=== PATIENT | female | born 1960 | race Caucasian/White ===

== ENCOUNTER 2017-08-28 10:56 | Outpatient (CLI) | payer OTHER ==
--- NOTE | 2017-08-28 14:25 | MMO ---
BILATERAL SCREENING MAMMOGRAM: INDICATION: Baseline examination; the patient had previous mammograms, none on location and greater than 10 years ago. These are unavailable for comparison. FINDINGS: The interpretation of this examination was assisted with computer-aided detection. There are scattere d fibroglandular elements. There are benign-appearing calcifications within the right and left breasts. No suspicious mass, cluster of microcalcifications, or area of architectural distortion is evident. IMPRESSION: BI-RADS category 2 - benign. Recommend routine annual mammographic screening. BIRADS 2: Benign Finding(s) Routine annual screening mammography (for women over age 40) POS: [facility]
== END 2017-08-28 10:57 | disposition home or self-care (01) ==
LOC: SCSMAMMO 10:56
PROVIDERS: ATTEND Family Medicine
DX: Z12.31 Encounter for screening mammogram for malignant neoplasm of breast (principal)
CPT/HCPCS: 77067

== ENCOUNTER 2021-07-18 06:03 | Inpatient (IN) | payer BC ==
[2021-07-18] MEDS ORDERED: Iopamidol 370 76% 100 ML VIAL ONE (08:51)
[2021-07-18 08:52] LABS: Troponin I 3.288 ng/mL (< 0.028)
[2021-07-18 08:57] VITALS: BMI 26.9
[2021-07-18] MEDS ORDERED: Nitroglycerin 0.4 MG TAB (25 Tab Bottle) SL PRN ×2 (09:07→16:19)
[2021-07-18] MEDS ORDERED: Nicotine 14 MG PATCH TD SCH (09:15)
[2021-07-18 11:38] LABS: Troponin I 4.788 ng/mL (< 0.028)
[2021-07-18] MEDS ORDERED: Communication Order-Pharmacy FS SCH ×2 (13:45→16:28)
[2021-07-18] MEDS ORDERED: Heparin 10,000 UNITS/ 10 ML VIAL ONE (13:57)
[2021-07-18] MEDS ORDERED: Verapamil 5 MG/2 ML VIAL ONE (13:57)
[2021-07-18] MEDS ORDERED: Nitroglycerin 100MG/250ML BOT 250 ML ONE (13:58)
[2021-07-18] MEDS ORDERED: Lidocaine 1% (PF) 30 ML VIAL ONE (13:58)
[2021-07-18 14:29] LABS: Troponin I 6.707 ng/mL (< 0.028)
[2021-07-18] MEDS ORDERED: Midazolam HCl 2 mg/2 ml Vial ONE (14:40)
[2021-07-18] MEDS ORDERED: Fentanyl 100 MCG/2 ML VIAL ONE (14:40)
[2021-07-18] MEDS ORDERED: Acetaminophen/Codeine 30-300mg Tablet PO PRN ×2 (16:19)
[2021-07-18] MEDS ORDERED: Sodium Chloride 0.9% 200 ML IV PRN (16:19)
[2021-07-18] MEDS ORDERED: Diazepam 5 MG TAB PO PRN (16:28)
[2021-07-18] MEDS ORDERED: Ondansetron PF 4 MG/2 ML Vial IVP PRN (17:22)
[2021-07-18 17:36] LABS: Hemoglobin A1c 8.3 % (4.0-6.0)
[2021-07-18] MEDS ORDERED: ceFAZolin (BATCH) 2 GM in Premix Bag 1 BAG IVPB SCH (18:30)
[2021-07-18] MEDS ORDERED: Atorvastatin Calcium 40 MG TAB PO SCH (21:00)
[2021-07-18] MEDS ORDERED: Enoxaparin Sodium 60 MG/0.6 ML SYRINGE SC SCH (21:00)
[2021-07-19 05:51] LABS: #Basophils 0.1 thou/uL (0.0-0.2); #Eosinphils 0.1 thou/uL (0.0-0.7); #Lymphocytes 2.3 thou/uL (1.20-3.40); #Monocytes 0.7 thou/uL (0.11-0.59); #Neutrophils 5.9 thou/uL (1.40-6.50); %Basophils 0.6 % (0.0-1.0); %Eosinophils 0.9 % (0.0-10.0); %Lymphocytes 25.4 % (21.0-51.0); %Monocytes 8.1 % (0.0-10.0); %Neutrophils 65.1 % (42.0-75.0); Hemoglobin 12.9 g/dL (12.0-16.0); Mean Corpuscular HGB CONC 34.3 g/dL (32.0-36.0); Mean Corpuscular Hemoglobin 30.9 pg (27.0-31.0); Mean Corpuscular Volume 90.1 fL (78.0-98.0); Mean Platelet Volume 7.4 fL (7.4-10.4); Platelet Count 174 thou/uL (130-400); RBC Distribution Width 11.6 % (11.5-14.5); Red Blood Cell (RBC) Count 4.17 mill/uL (4.20-5.40)
[2021-07-19] MEDS ORDERED: Albumin 5% 500 ML ONE (06:27)
[2021-07-19] MEDS ORDERED: Bupivacaine PF 0.5% 30 ML VIAL ONE (06:27)
[2021-07-19] MEDS ORDERED: Dexamethasone 4 mg/ml Vial ONE (06:27)
[2021-07-19] MEDS ORDERED: EPINEPHrine 1 MG/ML AMP ONE (06:27)
[2021-07-19] MEDS ORDERED: HumaLOG 300 UNITS/3 ML VIAL SC PRN ×2 (06:42)
[2021-07-19] MEDS ORDERED: Dextrose 5% in Water 1,000 ML IV PRN ×2 (06:42→12:00)
[2021-07-19] MEDS ORDERED: Dextrose 50% Abboject 50 ML SYRINGE SLOW IVP PRN ×2 (06:42→12:00)
[2021-07-19 06:45] LABS: Anion Gap 13 mmol/L (10-20); BUN (Urea Nitrogen) 13 mg/dL (9.8-20.1); Calc. Creatinine Clearance 66 mL/min (70-130); Calcium 9.2 mg/dL (7.8-10.44); Carbon Dioxide 21 mmol/L (22-29); Chloride 108 mmol/L (98-107); Glucose 120 mg/dL (70-105); Potassium 4.6 mmol/L (3.5-5.1); Sodium 137 mmol/L (136-145)
[2021-07-19] MEDS ORDERED: Heparin 10,000 UNITS/1 ML VIAL 30,000 UNITS in Sodium Chloride 0.9% 1,000 ML IVPB SCH (06:45)
[2021-07-19] MEDS ORDERED: fentaNYL Citrate/PF 100 MCG/2 ML SYRINGE ONE ×2 (06:58→06:59)
[2021-07-19] MEDS ORDERED: Midazolam HCl 5 mg/5 ml Vial ONE (06:58)
[2021-07-19] MEDS ORDERED: Sodium Chloride 0.9% 100 ML ONE (07:21)
[2021-07-19] MEDS ORDERED: CEFAZOLIN 2 GM VIAL ONE (07:21)
[2021-07-19] MEDS ORDERED: Papaverine 60 MG/2 ML VIAL ONE (07:40)
[2021-07-19] MEDS ORDERED: Sodium Bicarb 50 MEQ/50 ML Abboject 8.4% SYRINGE ONE (07:40)
[2021-07-19] MEDS ORDERED: Thrombin 5000 UNITS/5 ML VIAL ONE (07:40)
[2021-07-19] MEDS ORDERED: Lidocaine 1% PF 5 ML VIAL ONE (07:40)
[2021-07-19] MEDS ORDERED: Magnesium Sulfate 1 GM/2 ML VIAL ONE (07:40)
[2021-07-19] MEDS ORDERED: Lidocaine 2% PF 100 mg/5 ml Syringe ONE (07:40)
[2021-07-19] MEDS ORDERED: Calcium Chloride 1 GM/10 ML Abboject SYRINGE ONE (07:40)
[2021-07-19] MEDS ORDERED: Cardioplegic Soln 1,000 ML BAG ONE (07:40)
[2021-07-19] MEDS ORDERED: Protamine Sulfate 250 MG/25 ML VIAL ONE (07:40)
[2021-07-19] MEDS ORDERED: Heparin 5,000 UNITS/ML VIAL ONE (07:40)
[2021-07-19] MEDS ORDERED: Vecuronium 10 MG VIAL ONE (07:40)
[2021-07-19] MEDS ORDERED: Heparin 30,000 units/30 ml VIAL ONE (07:40)
[2021-07-19] MEDS ORDERED: PROPOFOL 200 MG/20 ML VIAL ONE (07:40)
[2021-07-19] MEDS ORDERED: Labetalol HCl 100 MG/20 ML VIAL ONE (07:40)
[2021-07-19] MEDS ORDERED: Aminocaproic Acid 5 GM/20 ML VIAL ONE (07:40)
[2021-07-19] MEDS ORDERED: Mannitol 12.5 GM/50 ML ONE (07:40)
[2021-07-19] MEDS ORDERED: Aspirin Chewable 81 MG TAB PO SCH (09:00)
[2021-07-19] MEDS ORDERED: PHENYLEPHRINE-NS 100 MCG/ML 10 ML SYRINGE ONE (09:15)
[2021-07-19] MEDS: Dextrose 5 %-0.45 % NaCl 1,000 ML IV SCH (10:54)
[2021-07-19 11:02] LABS: Actual Bicarbonate (HCO3a) 20.7 mEq/L (22-28); Base Excess (BEa) -4.7 mEq/L (-2.0 to +3.0); CO2 Tension 39.5 mmHg (35.0-45.0); Calcium, Ionized (arterial) 1.16 mmol/L (1.12-1.30); Carboxyhemoglobin (COHb) 0.4 gm% (0.0-3.0); Hemoglobin (Hb) 11.7 g/dL (12.0-16.0); O2 Tension (PaO2), arterial 93.9 mmHg (80.0-100.0); Potassium - ABG Lab 5.14 mmol/L (3.70-5.30); pH, Arterial 7.34 (7.35-7.45)
[2021-07-19 11:04] LABS: Puncture Site Arterial Line
[2021-07-19 11:05] LABS: ALV-art Gradient 284.525 mmHg (0-20)
[2021-07-19] MEDS ORDERED: Morphine 4 MG/ML VIAL ONE (11:09)
[2021-07-19] MEDS ORDERED: Nitroglycerin 50 MG/250 ML BOT 250 ML ONE (11:30)
[2021-07-19] MEDS ORDERED: Nitroglycerin 0.4 MG TAB (25 Tab Bottle) ONE (11:30)
[2021-07-19] MEDS ORDERED: niCARdipine 25 MG in Sodium Chloride 0.9% 250 ML 250 ML IVPB PRN (11:41)
[2021-07-19] MEDS ORDERED: Norepinephrine 8 MG/0.9% NS 250 ML IVPB PRN (11:41)
[2021-07-19] MEDS ORDERED: Morphine 2 MG/ML VIAL SLOW IVP PRN (11:41)
[2021-07-19] MEDS ORDERED: Bisacodyl 5 MG TAB PO PRN (11:41)
[2021-07-19] MEDS ORDERED: Hetastarch 6% 500 ML 500 ML IVPB PRN (11:41)
[2021-07-19] MEDS ORDERED: hydrALAZINE 20 MG/ML VIAL SLOW IVP PRN (11:41)
[2021-07-19] MEDS ORDERED: traMADol HCl 50 MG TAB PO PRN (11:41)
[2021-07-19] MEDS ORDERED: Nitroglycerin 50 MG/250 ML BOT 250 ML IVPB PRN (11:41)
[2021-07-19] MEDS ORDERED: Fentanyl 100 MCG/2 ML VIAL SLOW IVP PRN (11:41)
[2021-07-19] MEDS ORDERED: Bisacodyl 10 MG SUPP PR PRN (11:41)
[2021-07-19] MEDS ORDERED: Potassium Chloride 20 MEQ/100 ML PREMIX BAG IVPB PRN (11:41)
[2021-07-19] MEDS ORDERED: Guaifenesin DM 100-10/5 ML UDCUP PO PRN (11:41)
[2021-07-19] MEDS ORDERED: D5 1/2 NS w/20 mEq KCL 1,000 ML IV SCH (11:45)
[2021-07-19] MEDS ORDERED: Insulin Glargine 30 UNITS/0.3 ML VIAL SC PRN (11:49)
[2021-07-19 12:00] LABS: Anion Gap 14 mmol/L (10-20); BUN (Urea Nitrogen) 12 mg/dL (9.8-20.1); Calc. Creatinine Clearance 65 mL/min (70-130); Calcium 8.3 mg/dL (7.8-10.44); Carbon Dioxide 18 mmol/L (22-29); Chloride 111 mmol/L (98-107); Glucose 224 mg/dL (70-105); Potassium 5.2 mmol/L (3.5-5.1); Sodium 138 mmol/L (136-145)
[2021-07-19] MEDS ORDERED: HUMULIN R 100 UNITS in Sodium Chloride 0.9% 100 ML IVPB SCH (12:00)
[2021-07-19] MEDS ORDERED: Insulin Regular 300 UNITS/3 ML VIAL SC PRN (12:00)
[2021-07-19 12:02] LABS: Hemoglobin 11.2 g/dL (12.0-16.0); Mean Corpuscular HGB CONC 34.2 g/dL (32.0-36.0); Mean Corpuscular Hemoglobin 31.4 pg (27.0-31.0); Mean Corpuscular Volume 91.7 fL (78.0-98.0); Mean Platelet Volume 7.9 fL (7.4-10.4); Platelet Count 133 thou/uL (130-400); RBC Distribution Width 11.6 % (11.5-14.5); Red Blood Cell (RBC) Count 3.58 mill/uL (4.20-5.40)
[2021-07-19 12:07] LABS: INR-International Normal Ratio 1.1; PTT 29.7 sec (22.9-36.1); Prothrombin Time 14.6 sec (12.0-14.7)
[2021-07-19] MEDS ORDERED: Magnesium 2 GM/50 ML(in water) 2 GM in Premix Bag 1 BAG IVPB SCH (12:15)
[2021-07-19 12:16] LABS: Band 10 % (5-11); Lymphocytes 22 % (21-51); MDiff Complete? YES; Metamyelocyte 1 % (0-0); Monocytes 6 % (0-10); Neutrophil 61 % (42-75); Platelet Morphology Comment Appears Adequate; RBC Morphology Normal
[2021-07-19 12:48] LABS: Actual Bicarbonate (HCO3a) 19.4 mEq/L (22-28); Base Excess (BEa) -7.8 mEq/L (-2.0 to +3.0); CO2 Tension 46.5 mmHg (35.0-45.0); Calcium, Ionized (arterial) 1.16 mmol/L (1.12-1.30); Carboxyhemoglobin (COHb) 0.4 gm% (0.0-3.0); Hemoglobin (Hb) 12.3 g/dL (12.0-16.0); Potassium - ABG Lab 4.55 mmol/L (3.70-5.30)
[2021-07-19] MEDS: Ketorolac Tromethamine 30 MG/ML VIAL IVP SCH ×4 (13:10→23:37)
[2021-07-19 13:12] LABS: ALV-art Gradient 153.075 mmHg (0-20); Puncture Site Arterial Line; pH, Arterial 7.24 (7.35-7.45)
[2021-07-19 14:14] LABS: Actual Bicarbonate (HCO3a) 17.9 mEq/L (22-28); Base Excess (BEa) -8.2 mEq/L (-2.0 to +3.0); CO2 Tension 39.2 mmHg (35.0-45.0); Calcium, Ionized (arterial) 1.16 mmol/L (1.12-1.30); Carboxyhemoglobin (COHb) 0.5 gm% (0.0-3.0); Hemoglobin (Hb) 12.1 g/dL (12.0-16.0); Potassium - ABG Lab 4.39 mmol/L (3.70-5.30); pH, Arterial 7.28 (7.35-7.45)
[2021-07-19 14:17] LABS: Puncture Site Arterial Line
[2021-07-19] MEDS ORDERED: Sodium Bicarb 50 MEQ/50 ML VIAL ONE (14:17)
[2021-07-19] MEDS ORDERED: Sodium Bicarb 50 MEQ/50 ML VIAL IVP SCH (15:15)
[2021-07-19] MEDS ORDERED: ceFAZolin 2 GM/Dextrose 50 ML 2 GM in Premix Bag 1 BAG IVPB SCH (16:00)
[2021-07-19] MEDS: CEFAZOLIN 2 GM in Sodium Chloride 0.9% 100 ML IVPB SCH (16:28)
[2021-07-19] MEDS: Ondansetron PF 4 MG/2 ML Vial IVP PRN ×2 (17:10→23:37)
[2021-07-19 17:39] LABS: Hemoglobin 10.7 g/dL (12.0-16.0)
[2021-07-19 17:54] LABS: Potassium 3.8 mmol/L (3.5-5.1)
[2021-07-19] MEDS: Fentanyl 100 MCG/2 ML VIAL SLOW IVP PRN ×2 (19:31→21:54)
[2021-07-19] MEDS ORDERED: Atorvastatin Calcium 40 MG TAB PO SCH (21:00)
[2021-07-19] MEDS: Famotidine 40 MG/4 ML VIAL SLOW IVP SCH (21:19)
[2021-07-20] MEDS: CEFAZOLIN 2 GM in Sodium Chloride 0.9% 100 ML IVPB SCH ×2 (00:29→08:09)
[2021-07-20] MEDS: Dextrose 5 %-0.45 % NaCl 1,000 ML IV SCH (03:21)
[2021-07-20 04:19] LABS: #Lymphocytes 1.3 thou/uL (1.20-3.40); #Monocytes 1.3 thou/uL (0.11-0.59); #Neutrophils 11.3 thou/uL (1.40-6.50); %Basophils 0.1 % (0.0-1.0); %Eosinophils 0.1 % (0.0-10.0); %Lymphocytes 9.6 % (21.0-51.0); %Monocytes 9.4 % (0.0-10.0); %Neutrophils 80.9 % (42.0-75.0); Hemoglobin 9.7 g/dL (12.0-16.0); Mean Corpuscular HGB CONC 34.4 g/dL (32.0-36.0); Mean Corpuscular Hemoglobin 31.8 pg (27.0-31.0); Mean Corpuscular Volume 92.4 fL (78.0-98.0); Mean Platelet Volume 7.7 fL (7.4-10.4); Platelet Count 131 thou/uL (130-400); RBC Distribution Width 11.6 % (11.5-14.5); Red Blood Cell (RBC) Count 3.04 mill/uL (4.20-5.40)
[2021-07-20 04:38] LABS: Anion Gap 11 mmol/L (10-20); BUN (Urea Nitrogen) 17 mg/dL (9.8-20.1); Calc. Creatinine Clearance 62 mL/min (70-130); Calcium 8.4 mg/dL (7.8-10.44); Carbon Dioxide 22 mmol/L (22-29); Chloride 112 mmol/L (98-107); Glucose 131 mg/dL (70-105); Potassium 4.2 mmol/L (3.5-5.1); Sodium 141 mmol/L (136-145)
[2021-07-20] MEDS: Ondansetron PF 4 MG/2 ML Vial IVP PRN ×4 (06:21→23:30)
[2021-07-20] MEDS: Fentanyl 100 MCG/2 ML VIAL SLOW IVP PRN ×2 (06:21→09:55)
[2021-07-20] MEDS: Ketorolac Tromethamine 30 MG/ML VIAL IVP SCH ×4 (06:23→23:22)
[2021-07-20] MEDS: Aspirin 325 MG TAB PO SCH (08:08)
[2021-07-20] MEDS ORDERED: Simethicone Chewable 80 MG TAB PO PRN (08:25)
[2021-07-20] MEDS ORDERED: Magnesium 2 GM/50 ML(in water) 2 GM in Premix Bag 1 BAG IVPB SCH (09:00)
[2021-07-20] MEDS: Famotidine 40 MG/4 ML VIAL SLOW IVP SCH (10:44)
[2021-07-20] MEDS ORDERED: Nitroglycerin 0.4 MG TAB (25 Tab Bottle) SL PRN (12:06)
[2021-07-20] MEDS ORDERED: Mineral Oil ENEMA PR PRN (12:06)
[2021-07-20] MEDS: Mag-Al 1200 mg/1200 mg/30 ML UDCUP PO PRN ×2 (12:23→16:26)
[2021-07-20] MEDS ORDERED: Dextrose 50% Abboject 50 ML SYRINGE SLOW IVP PRN (12:30)
[2021-07-20] MEDS ORDERED: Dextrose 5% in Water 1,000 ML IV PRN (12:30)
[2021-07-20] MEDS: glipiZIDE 5 MG TAB PO SCH (16:26)
[2021-07-20] MEDS: Acetaminophen 325 MG TAB PO PRN (16:26)
[2021-07-20] MEDS: Atorvastatin Calcium 10 MG TAB PO SCH (21:33)
[2021-07-20] MEDS: Famotidine 20 MG TAB PO SCH (21:33)
[2021-07-20] MEDS: Metoprolol Tartrate 25 MG TAB PO SCH (21:33)
[2021-07-20] MEDS: Insulin Regular 300 UNITS/3 ML VIAL SC PRN (21:34)
[2021-07-21 04:43] LABS: #Lymphocytes 2.1 thou/uL (1.20-3.40); #Monocytes 1.1 thou/uL (0.11-0.59); %Eosinophils 0.2 % (0.0-10.0); %Lymphocytes 15.7 % (21.0-51.0); %Monocytes 8.5 % (0.0-10.0); %Neutrophils 75.6 % (42.0-75.0); Hemoglobin 9.5 g/dL (12.0-16.0); Mean Corpuscular HGB CONC 33.5 g/dL (32.0-36.0); Mean Corpuscular Hemoglobin 31.6 pg (27.0-31.0); Mean Corpuscular Volume 94.2 fL (78.0-98.0); Mean Platelet Volume 7.6 fL (7.4-10.4); Platelet Count 132 thou/uL (130-400); RBC Distribution Width 11.8 % (11.5-14.5); White Blood Cell (WBC) Count 13.3 thou/uL (4.8-10.8)
[2021-07-21 05:05] LABS: Anion Gap 11 mmol/L (10-20); BUN (Urea Nitrogen) 22 mg/dL (9.8-20.1); Calc. Creatinine Clearance 56 mL/min (70-130); Calcium 8.6 mg/dL (7.8-10.44); Carbon Dioxide 25 mmol/L (22-29); Chloride 108 mmol/L (98-107); Glucose 153 mg/dL (70-105); Sodium 139 mmol/L (136-145)
[2021-07-21] MEDS: Ketorolac Tromethamine 30 MG/ML VIAL IVP SCH ×4 (05:20→23:39)
[2021-07-21] MEDS: Insulin Regular 300 UNITS/3 ML VIAL SC PRN ×4 (05:25→20:48)
[2021-07-21] MEDS: traMADol HCl 50 MG TAB PO PRN (07:54)
[2021-07-21] MEDS: Aspirin 325 MG TAB PO SCH (07:56)
[2021-07-21] MEDS: Famotidine 20 MG TAB PO SCH ×2 (07:56→20:47)
[2021-07-21] MEDS: glipiZIDE 5 MG TAB PO SCH ×2 (07:56→17:05)
[2021-07-21] MEDS: Metoprolol Tartrate 25 MG TAB PO SCH ×2 (07:56→20:47)
[2021-07-21] MEDS: Furosemide 20 MG TAB PO SCH (07:56)
[2021-07-21] MEDS ORDERED: Amiodarone 150 MG, Admixture Fee 1 EACH in Dextrose 5% in Water 100 ML IVPB SCH (11:45)
[2021-07-21] MEDS: Amiodarone 450 MG, Admixture Fee 1 EACH in Dextrose 5% in Water 250 ML IVPB SCH ×2 (12:28→23:40)
[2021-07-21] MEDS ORDERED: Digoxin 0.5 MG/2 ML AMP SLOW IVP SCH (12:30)
[2021-07-21] MEDS ORDERED: Diltiazem 125 MG in Sodium Chloride 0.9% 100 ML IVPB SCH (12:30)
[2021-07-21] MEDS ORDERED: Diltiazem HCl 125 MG in Premix Bag 1 BAG IVPB SCH (12:45)
[2021-07-21 13:07] LABS: ALT (SGPT) Less than 7 U/L (8-55); AST (SGOT) 18 U/L (5-34); Albumin 3.6 g/dL (3.5-5.0); Alkaline Phosphatase 77 U/L (40-110); Bilirubin, Direct 0.4 mg/dL (0.1-0.3); Bilirubin, Total 0.8 mg/dL (0.2-1.2); Magnesium 2.2 mg/dL (1.6-2.6); Protein, Total 6.1 g/dL (6.0-8.3)
[2021-07-21] MEDS: Atorvastatin Calcium 10 MG TAB PO SCH (20:47)
[2021-07-22] MEDS: Ketorolac Tromethamine 30 MG/ML VIAL IVP SCH ×2 (05:28→12:08)
[2021-07-22 08:01] LABS: #Eosinphils 0.1 thou/uL (0.0-0.7); #Lymphocytes 1.8 thou/uL (1.20-3.40); #Monocytes 0.8 thou/uL (0.11-0.59); #Neutrophils 5.6 thou/uL (1.40-6.50); %Basophils 0.2 % (0.0-1.0); %Eosinophils 0.8 % (0.0-10.0); %Lymphocytes 21.8 % (21.0-51.0); %Monocytes 9.8 % (0.0-10.0); %Neutrophils 67.4 % (42.0-75.0); Mean Corpuscular Hemoglobin 31.1 pg (27.0-31.0); Mean Corpuscular Volume 94.1 fL (78.0-98.0); Mean Platelet Volume 7.9 fL (7.4-10.4); Platelet Count 137 thou/uL (130-400); RBC Distribution Width 11.7 % (11.5-14.5); Red Blood Cell (RBC) Count 2.91 mill/uL (4.20-5.40); White Blood Cell (WBC) Count 8.3 thou/uL (4.8-10.8)
[2021-07-22 08:16] LABS: Anion Gap 12 mmol/L (10-20); BUN (Urea Nitrogen) 21 mg/dL (9.8-20.1); Calc. Creatinine Clearance 59 mL/min (70-130); Calcium 8.4 mg/dL (7.8-10.44); Carbon Dioxide 25 mmol/L (22-29); Chloride 107 mmol/L (98-107); Glucose 132 mg/dL (70-105); Potassium 4.4 mmol/L (3.5-5.1); Sodium 140 mmol/L (136-145)
[2021-07-22] MEDS: Famotidine 20 MG TAB PO SCH ×2 (09:12→20:49)
[2021-07-22] MEDS: glipiZIDE 5 MG TAB PO SCH ×2 (09:12→15:34)
[2021-07-22] MEDS: Aspirin 325 MG TAB PO SCH (09:12)
[2021-07-22] MEDS: Metoprolol Tartrate 25 MG TAB PO SCH ×2 (09:12→20:48)
[2021-07-22] MEDS: Furosemide 20 MG TAB PO SCH (09:12)
[2021-07-22 09:50] LABS: Magnesium 2.5 mg/dL (1.6-2.6)
[2021-07-22] MEDS: Insulin Regular 300 UNITS/3 ML VIAL SC PRN ×3 (12:08→21:56)
[2021-07-22] MEDS: Amiodarone 200 MG TAB PO SCH ×2 (15:34→20:48)
[2021-07-22] MEDS ORDERED: diphenhydrAMINE 50 MG/ML VIAL IVP SCH (17:30)
[2021-07-22] MEDS: Atorvastatin Calcium 10 MG TAB PO SCH (20:48)
[2021-07-22] MEDS ORDERED: Amiodarone 150 MG, Admixture Fee 1 EACH in Dextrose 5% in Water 100 ML IVPB SCH (22:00)
[2021-07-22 22:17] LABS: Troponin I 3.208 ng/mL (< 0.028)
[2021-07-22 22:20] LABS: Magnesium 2.1 mg/dL (1.6-2.6); Phosphorus 2.3 mg/dL (2.3-4.7)
[2021-07-22] MEDS: Amiodarone 450 MG, Admixture Fee 1 EACH in Dextrose 5% in Water 250 ML IVPB SCH (23:06)
[2021-07-22] MEDS: Acetaminophen 325 MG TAB PO PRN (23:08)
[2021-07-23] MEDS ORDERED: Digoxin 0.5 MG/2 ML AMP SLOW IVP SCH (00:30)
[2021-07-23] MEDS: traMADol HCl 50 MG TAB PO PRN ×2 (01:15→20:34)
[2021-07-23 04:32] LABS: #Eosinphils 0.1 thou/uL (0.0-0.7); #Monocytes 0.8 thou/uL (0.11-0.59); %Eosinophils 0.9 % (0.0-10.0); %Lymphocytes 25.6 % (21.0-51.0); %Monocytes 10.4 % (0.0-10.0); %Neutrophils 63.2 % (42.0-75.0); Hemoglobin 9.3 g/dL (12.0-16.0); Mean Corpuscular HGB CONC 33.9 g/dL (32.0-36.0); Mean Corpuscular Hemoglobin 31.6 pg (27.0-31.0); Mean Corpuscular Volume 93.2 fL (78.0-98.0); Mean Platelet Volume 7.5 fL (7.4-10.4); Platelet Count 170 thou/uL (130-400); RBC Distribution Width 11.7 % (11.5-14.5); Red Blood Cell (RBC) Count 2.93 mill/uL (4.20-5.40); White Blood Cell (WBC) Count 7.9 thou/uL (4.8-10.8)
[2021-07-23 04:51] LABS: Anion Gap 13 mmol/L (10-20); BUN (Urea Nitrogen) 20 mg/dL (9.8-20.1); Calc. Creatinine Clearance 57 mL/min (70-130); Calcium 8.7 mg/dL (7.8-10.44); Carbon Dioxide 24 mmol/L (22-29); Chloride 107 mmol/L (98-107); Glucose 159 mg/dL (70-105); Potassium 3.8 mmol/L (3.5-5.1); Sodium 140 mmol/L (136-145)
[2021-07-23] MEDS: Metoprolol Tartrate 25 MG TAB PO SCH ×2 (08:21→20:34)
[2021-07-23] MEDS: Furosemide 20 MG TAB PO SCH (08:21)
[2021-07-23] MEDS: glipiZIDE 5 MG TAB PO SCH ×2 (08:21→17:32)
[2021-07-23] MEDS: Famotidine 20 MG TAB PO SCH ×2 (08:21→20:34)
[2021-07-23] MEDS: Amiodarone 200 MG TAB PO SCH ×3 (08:21→20:34)
[2021-07-23] MEDS: Ondansetron PF 4 MG/2 ML Vial IVP PRN ×2 (08:21→19:18)
[2021-07-23] MEDS: Polyethylene Glycol 3350 17 GM Packet PO SCH (08:21)
[2021-07-23] MEDS: Aspirin 325 MG TAB PO SCH (08:21)
[2021-07-23] MEDS ORDERED: Magnesium Citrate 300 ML BOT PO SCH (17:15)
[2021-07-23] MEDS: Atorvastatin Calcium 10 MG TAB PO SCH (20:34)
[2021-07-23] MEDS: Amiodarone 450 MG, Admixture Fee 1 EACH in Dextrose 5% in Water 250 ML IVPB SCH (21:14)
[2021-07-24] MEDS: Ondansetron PF 4 MG/2 ML Vial IVP PRN (03:54)
[2021-07-24 04:19] LABS: #Eosinphils 0.1 thou/uL (0.0-0.7); #Lymphocytes 2.2 thou/uL (1.20-3.40); #Monocytes 1.1 thou/uL (0.11-0.59); #Neutrophils 6.3 thou/uL (1.40-6.50); %Basophils 0.3 % (0.0-1.0); %Eosinophils 0.7 % (0.0-10.0); %Lymphocytes 22.5 % (21.0-51.0); %Monocytes 11.3 % (0.0-10.0); %Neutrophils 65.3 % (42.0-75.0); Mean Corpuscular HGB CONC 33.1 g/dL (32.0-36.0); Mean Corpuscular Volume 93.5 fL (78.0-98.0); Mean Platelet Volume 7.2 fL (7.4-10.4); Platelet Count 229 thou/uL (130-400); RBC Distribution Width 11.8 % (11.5-14.5); Red Blood Cell (RBC) Count 3.22 mill/uL (4.20-5.40); White Blood Cell (WBC) Count 9.6 thou/uL (4.8-10.8)
[2021-07-24 04:57] LABS: Anion Gap 12 mmol/L (10-20); BUN (Urea Nitrogen) 16 mg/dL (9.8-20.1); Calc. Creatinine Clearance 59 mL/min (70-130); Calcium 9.1 mg/dL (7.8-10.44); Carbon Dioxide 32 mmol/L (22-29); Chloride 103 mmol/L (98-107); Glucose 196 mg/dL (70-105); Potassium 4.5 mmol/L (3.5-5.1); Sodium 142 mmol/L (136-145)
[2021-07-24] MEDS: Insulin Regular 300 UNITS/3 ML VIAL SC PRN (06:30)
[2021-07-24] MEDS: diphenhydrAMINE 50 MG/ML VIAL ONE ×2 (07:24→07:27)
[2021-07-24] MEDS ORDERED: diphenhydrAMINE 50 MG/ML VIAL IVP SCH (08:00)
[2021-07-24] MEDS ORDERED: Promethazine HCl 25 MG in Sodium Chloride 0.9% 50 ML IVPB PRN (09:22)
[2021-07-24] MEDS: Furosemide 20 MG TAB PO SCH (10:24)
[2021-07-24] MEDS: Amiodarone 200 MG TAB PO SCH ×3 (10:25→21:12)
[2021-07-24] MEDS: Famotidine 20 MG TAB PO SCH ×2 (10:25→21:12)
[2021-07-24] MEDS: Metoprolol Tartrate 25 MG TAB PO SCH ×2 (10:25→21:13)
[2021-07-24] MEDS: Aspirin 325 MG TAB PO SCH (10:26)
[2021-07-24] MEDS: Polyethylene Glycol 3350 17 GM Packet PO SCH (10:26)
[2021-07-24] MEDS: glipiZIDE 5 MG TAB PO SCH ×2 (10:26→16:59)
[2021-07-24] MEDS: Atorvastatin Calcium 10 MG TAB PO SCH (21:12)
[2021-07-24] MEDS: traMADol HCl 50 MG TAB PO PRN (21:13)
[2021-07-25 04:12] LABS: #Eosinphils 0.1 thou/uL (0.0-0.7); #Lymphocytes 2.6 thou/uL (1.20-3.40); #Monocytes 1.3 thou/uL (0.11-0.59); #Neutrophils 5.8 thou/uL (1.40-6.50); %Basophils 0.1 % (0.0-1.0); %Lymphocytes 26.6 % (21.0-51.0); %Monocytes 13.3 % (0.0-10.0); Hemoglobin 10.1 g/dL (12.0-16.0); Mean Corpuscular HGB CONC 33.7 g/dL (32.0-36.0); Mean Corpuscular Hemoglobin 31.3 pg (27.0-31.0); Platelet Count 244 thou/uL (130-400); RBC Distribution Width 11.7 % (11.5-14.5); Red Blood Cell (RBC) Count 3.24 mill/uL (4.20-5.40); White Blood Cell (WBC) Count 9.9 thou/uL (4.8-10.8)
[2021-07-25 04:32] LABS: Anion Gap 13 mmol/L (10-20); BUN (Urea Nitrogen) 15 mg/dL (9.8-20.1); Calc. Creatinine Clearance 53 mL/min (70-130); Carbon Dioxide 30 mmol/L (22-29); Chloride 101 mmol/L (98-107); Glucose 133 mg/dL (70-105); Potassium 4.4 mmol/L (3.5-5.1); Sodium 140 mmol/L (136-145)
[2021-07-25 09:10] VITALS: BP 108/55; TEMP 98.6
[2021-07-25] MEDS: Amiodarone 200 MG TAB PO SCH (09:10)
[2021-07-25] MEDS: Famotidine 20 MG TAB PO SCH (09:10)
[2021-07-25] MEDS: Aspirin 325 MG TAB PO SCH (09:10)
[2021-07-25] MEDS: Metoprolol Tartrate 25 MG TAB PO SCH (09:11)
[2021-07-25] MEDS: glipiZIDE 5 MG TAB PO SCH (09:11)
[2021-07-25] MEDS: Furosemide 20 MG TAB PO SCH (09:12)
[2021-07-25] MEDS: Polyethylene Glycol 3350 17 GM Packet PO SCH (09:13)
== END 2021-07-25 10:15 | disposition home or self-care (01) | DRG 234 ==
LOC: NEURO 06:59 → CCU 07-19 10:01 → 2NO 07-20 11:48
PROVIDERS: ADMIT Student in an Organized Health Care Education/Training Program; ATTEND Student in an Organized Health Care Education/Training Program
PROC: 4A023N7 Measurement of Cardiac Sampling and Pressure, Left Heart, Percutaneous Approach (ICD-10-PCS; principal; 2021-07-18)
PROC: B2111ZZ Fluoroscopy of Multiple Coronary Arteries using Low Osmolar Contrast (ICD-10-PCS; 2021-07-18)
PROC: B2151ZZ Fluoroscopy of Left Heart using Low Osmolar Contrast (ICD-10-PCS; 2021-07-18)
PROC: 021109W Bypass Coronary Artery, Two Arteries from Aorta with Autologous Venous Tissue, Open Approach (ICD-10-PCS; 2021-07-19)
PROC: 02100Z9 Bypass Coronary Artery, One Artery from Left Internal Mammary, Open Approach (ICD-10-PCS; 2021-07-19)
PROC: 06BQ4ZZ Excision of Left Saphenous Vein, Percutaneous Endoscopic Approach (ICD-10-PCS; 2021-07-19)
PROC: 5A1221Z Performance of Cardiac Output, Continuous (ICD-10-PCS; 2021-07-19)
PROC: 02L70CK Occlusion of Left Atrial Appendage with Extraluminal Device, Open Approach (ICD-10-PCS; 2021-07-19)
DX: I21.4 Non-ST elevation (NSTEMI) myocardial infarction (principal); F15.20 Other stimulant dependence, uncomplicated; I25.10 Atherosclerotic heart disease of native coronary artery without angina pectoris; E78.5 Hyperlipidemia, unspecified; E11.22 Type 2 diabetes mellitus with diabetic chronic kidney disease; N18.30 Chronic kidney disease, stage 3 unspecified; F17.210 Nicotine dependence, cigarettes, uncomplicated; I12.9 Hypertensive chronic kidney disease with stage 1 through stage 4 chronic kidney disease, or unspecified chronic kidney disease; E78.00 Pure hypercholesterolemia, unspecified; R11.0 Nausea; Z20.822 Contact with and (suspected) exposure to COVID-19; I48.91 Unspecified atrial fibrillation; K59.00 Constipation, unspecified; Z79.82 Long term (current) use of aspirin; Z71.6 Tobacco abuse counseling; Z98.891 History of uterine scar from previous surgery; Z79.899 Other long term (current) drug therapy; Z79.84 Long term (current) use of oral hypoglycemic drugs
CPT/HCPCS: 36415; 36416; 36430; 71045; 80048; 80076; 82805; 83036; 83735; 83880; 84100; 84443; 84484; 85025; 85610; 85730; 86850; 86900; 86901; 93005; 93010; 93458; 93798; 94002; 94150; 94640; 94760; 97139; 99152; 99153; C1751; J0171; J0282; J0690; J1100; J1160; J1200; J1644; J1815; J1885; J2001; J2150; J2250; J2270; J2405; J2440; J2550; J2704; J2720; J3010; J3370; J3475; J3480; J3490; J7042; J7070; J7620; P9045; Q9967; S0017; S0020